=== PATIENT | female | born 1985 | race Two or more races ===

== ENCOUNTER 2021-09-24 13:04 | Inpatient (IN) ==
[2021-09-24] MEDS ORDERED: Buffered Lidocaine 1% SYRIN 1 ml INTRADERM ONE (15:18)
[2021-09-24] MEDS ORDERED: Lactated Ringers 1000 ml BAG 1,000 ML IV ONE (15:18)
[2021-09-24] MEDS ORDERED: Lactated Ringers 1000 ml BAG 1,000 ML IV SCH (16:00)
[2021-09-24 16:38] LABS: Urine Benzodiazepine Screen None Detected (None Detect); Urine Cannabinoids Screen None Detected (None Detect); Urine Opiates Screen None Detected (None Detect)
[2021-09-24] MEDS ORDERED: Nalbuphine 10 MG/ML 1 ML VIAL IM PRN (22:36)
[2021-09-24] MEDS ORDERED: Promethazine INJ(RESTRICTED) 25 MG/ML 1 ml VIAL IM ONE (22:37)
[2021-09-25 09:35] LABS: Hematocrit 39 % (35-47); Hemoglobin 13.2 g/dL (12.0-16.0); Mean Corpuscular HGB Conc 34 g/dL (31-36); Mean Corpuscular Hemoglobin 30 pg (27-31); Mean Corpuscular Volume 89 fL (80-97); Mean Platelet Volume 10.3 fL (7.4-10.4); Platelet Count 193 10^3/uL (150-450); Red Blood Count 4.38 10^6 /uL (3.70-4.87); Red Cell Distribution Width 13 % (10-15); White Blood Count 19.5 10^3/uL (3.5-10.8)
[2021-09-25 09:46] LABS: Albumin 3.5 g/dL (3.2-5.2); CO2 Carbon Dioxide 18 mmol/L (22-32); Calcium 8.9 mg/dL (8.6-10.3); Chloride 102 mmol/L (101-111); Sodium 130 mmol/L (135-145)
[2021-09-25 09:52] LABS: ALT 8 U/L (7-52); Alkaline Phosphatase 98 U/L (35-149); Blood Urea Nitrogen 13 mg/dL (6-24); Globulin 3.5 g/dL (2-4); Glucose 116 mg/dL (70-100); Uric Acid 8.4 mg/dL (2.3-6.6); eGFR CKD-EPI 80.6 (>60)
[2021-09-25 10:51] LABS: ABS Basophils 0.1 10^3/ul (0-0.2); ABS Lymphocytes 1.1 10^3/ul (1.0-4.8); ABS Monocytes 1.6 10^3/ul (0-0.8); ABS Neutrophils 16.8 10^3/ul (1.5-7.7); Anion Gap 10 mmol/L (2-11); Eosinophil % 0.1 %; Lymphocyte % 5.5 %; Nucleated Red Blood Cells % 0.1
[2021-09-25] MEDS ORDERED: Oxytocin in LR 20 UNITS/1,000 ML BAG IVPB SCH ×2 (12:00→23:00)
[2021-09-25] MEDS: Famotidine IV 10 MG/ML 2 ml VIAL (20 mg) IV SLOW PU SCH (13:48)
[2021-09-25] MEDS ORDERED: Dibucaine 1% OINT 28.35 GM TUBE ONE (22:20)
[2021-09-25] MEDS ORDERED: fentaNYL 100 mcg/2 ml 50 MCG/ML VIAL ONE (22:20)
[2021-09-25] MEDS ORDERED: Witch Hazel PAD JAR ONE (22:21)
[2021-09-25] MEDS ORDERED: Dibucaine 1% OINT 28.35 GM TUBE PR PRN (22:40)
[2021-09-25] MEDS ORDERED: Witch Hazel PAD JAR TOPICAL PRN (22:40)
[2021-09-25] MEDS ORDERED: fentaNYL 100 mcg/2 ml 50 MCG/ML VIAL IV SLOW PU ONE (22:47)
[2021-09-25] MEDS ORDERED: Lactated Ringers 1000 ml BAG 1,000 ML IV SCH (23:00)
[2021-09-26] MEDS ORDERED: Lidocaine 1% VIAL 10 MG/ML VIAL ONE (01:55)
[2021-09-26] MEDS: Famotidine IV 10 MG/ML 2 ml VIAL (20 mg) IV SLOW PU SCH ×2 (04:39→08:24)
[2021-09-26 07:39] LABS: Hematocrit 32 % (35-47); Hemoglobin 11.2 g/dL (12.0-16.0); Mean Corpuscular HGB Conc 35 g/dL (31-36); Mean Corpuscular Hemoglobin 31 pg (27-31); Mean Corpuscular Volume 89 fL (80-97); Mean Platelet Volume 9.6 fL (7.4-10.4); Platelet Count 165 10^3/uL (150-450); Red Blood Count 3.62 10^6 /uL (3.70-4.87); Red Cell Distribution Width 13 % (10-15); White Blood Count 22.8 10^3/uL (3.5-10.8)
[2021-09-26 07:43] LABS: ABS Lymphocytes 1.8 10^3/ul (1.0-4.8); ABS Monocytes 2.2 10^3/ul (0-0.8); ABS Neutrophils 18.8 10^3/ul (1.5-7.7); Eosinophil % 0.1 %
[2021-09-27 10:04] VITALS: BP 116/72
== END 2021-09-27 16:22 | disposition home or self-care (01) | DRG 807 ==
LOC: MCHOBOUT 13:04 → MCHOB 13:19
PROVIDERS: ADMIT Midwife; ATTEND Midwife